=== PATIENT | female | born 1985 | race Caucasian/White ===

== ENCOUNTER 2020-06-23 12:29 | Inpatient (IN) | payer OTHER, SELFPAY ==
--- NOTE | ~2020-06-23 | MR_ITS ---
EXAMINATION: MR renal wo con INDICATION: Right flank pain TECHNIQUE: Coronal SSFSE ARC, FAT and WATER:coronal LAVA-FLEX, Coronal 2D FIESTA FatSat, Axial SSFSE BH ARC, Axial 3D DualEcho BH, Axial SSFSE-IR, Axial DWI b=50-700, Axial 2D FIESTA FatSat, pre Axial L GLORIA ARC, Coronal In and Opposed phase LAVA FLEX COMPARISON: CT, 01/08/2017 CONTRAST: None FINDINGS: There is moderate right hydronephrosis. The right ureter is tortuous. There is a changing c aliber of the ureter as it passes adjacent to the uterus. No definite urinary tract calculus is ident ified. The left kidney is unremarkable. A gravid uterus is noted. Although the examination is not opt imized for evaluation, there is grossly no anomaly identified. There is a large volume of colonic stool. The liver, spleen, pancreas, and adrenal glands are normal. The gallbladder is surgic ally absent. No pathologically enlarged abdominal lymph nodes are identified. There are no dilated lo ops of bowel. Bilateral breast implants are noted. IMPRESSION: 1. Moderate right hydronephrosis and tortuosity of the proximal right ureter with caliber change as t he ureter passes behind the gravid uterus and no definite evidence of urolithiasis. Reviewed, dictated and finalized at location A. [employer]KEE[employer]PER[employer] IMPRESSION: 1. Moderate right hydronephrosis and tortuosity of the proximal right ureter wi th caliber change as the ureter passes behind the gravid uterus and no definite evidence of urolithiasis.
--- NOTE | ~2020-06-23 | US_ITS ---
EXAMINATION: US renal BI DATE: 06/23/2020 17:45 INDICATION: Right flank pain. Nephrolithiasis. TECHNIQUE: Multiple ultrasound grayscale images of the kidneys were obtained. COMPARISON: CT dated 01/08/2017 FINDINGS: The right kidney measures 11.0 x 6.0 x 7.2 cm. The left kidney measures 10.8 x 4.6 x 4.6 cm. The kidn eys demonstrate normal echogenicity. Mild right hydronephrosis. There is no left-sided hydronephrosis . Normal arterial resistive indices at the bilateral kidneys measuring 0.61-0.68 on the right and 0.6 9-0.76 on the left. No stones identified. The bladder is normal. IMPRESSION: 1. Mild right hydronephrosis. Reviewed, dictated and finalized at location A. LIANCE SPEC
[2020-06-23 13:00] VITALS: BMI 21.5
[2020-06-23 13:26] LABS: Add Urine Microscopic? YES; Appearance Urine Cloudy (Clear); Bacteria Urine 1+ /hpf; Bilirubin Urine Negative (Negative); Blood Urine Negative (Negative); Color Urine Yellow (Yellow); Glucose Urine UA 1+ mg/dL (Negative); Ketones Urine Negative (Negative); Leukocyte Esterase Ur 1+ LEU/UL (NEGATIVE); Mucus Urine Rare /lpf; Nitrate Urine Negative (Negative); Protein Urine Negative (Negative); RBC Urine 0-2 /hpf (0-2); Specific Grav Ur 1.014 (1.001-1.035); Squamous Epithelial Cell Urine Few /hpf (Few); Urobilinogen Urine Negative mg/dL (<2.0); WBC Urine 0-3 /hpf (0-3)
[2020-06-23] MEDS: LACTATED RINGERS 1,000 ML 125 ML IV CONT ×2 (13:59→23:08)
[2020-06-23] MEDS: ACETAMINOPHEN 500 MG TABLET 1000 MG PO (14:00)
[2020-06-23 14:09] LABS: Hematocrit 32.6 % (37.0-47.0); Hemoglobin 11.2 g/dL (12.0-15.0); Mean Corpuscular HGB Conc 34.4 g/dl (32-36); Mean Corpuscular Hemoglobin 32.5 pg (26-34); Mean Corpuscular Volume 94.5 fl (80-100); Platelet Count Result 201 k/mm3 (150-375); Red Blood Count 3.45 M/mm3 (4.2-5.4); Red Cell Distribution Width 12.3 % (11.5-14.5); White Blood Count 8.5 K/mm3 (4.5-10.0)
[2020-06-23] MEDS: MORPHINE SULFATE (*CRX) 2 MG/ML INJ IV PUSH ×2 (16:09→20:17)
[2020-06-23] MEDS: ONDANSETRON INJ 4 MG/2 ML VIAL IV PUSH (16:09)
[2020-06-23 20:22] VITALS: BP 95/53; PULSE 73
[2020-06-24] VITALS (8 sets, daily range): BP systolic 88–93; BP diastolic 48–52; PULSE 69–79; RESP 16; TEMP 36.6–36.9
[2020-06-24] MEDS: MORPHINE SULFATE (*CRX) 2 MG/ML INJ IV PUSH ×5 (01:06→20:23)
[2020-06-24] MEDS: HYDROcodone/acetaminophen (*CRX) 5-325 MG TABLET 1 TAB PO ×2 (06:35→17:34)
[2020-06-24] MEDS: LACTATED RINGERS 1,000 ML 125 ML IV CONT ×2 (07:18→15:47)
--- NOTE | 2020-06-24 07:20 | PC.NURSE ---
Patient appears to be more comfortable following pain medication. Patient is resting comfortably dozing.
[2020-06-24] MEDS: ONDANSETRON INJ 4 MG/2 ML VIAL IV PUSH (07:44)
--- NOTE | 2020-06-24 07:46 | PC.NURSE ---
Patient reports increased pain after waking up. Patient states she is feeling nauseous and pain is 7/10 when awake. Medications given as ordered. Patient instructed to call for RN if pain doesn't improve or if she has emesis.
--- NOTE | 2020-06-24 08:19 | PC.NURSE ---
Dr. Anderson at bedside for patient assessment. Plan of care discussed with patient. Patient denies questions and agrees to plan of care.
--- NOTE | 2020-06-24 08:34 | PM.IMHP ---
H&P: HPI History of Present Illness Date/Time: 06/24/20 08:34 Chief Complaint: R flank pain Narrative: Radha Barnett is a 34 year old female at 23w5d who presented with R sided flank pain. Pt has had a positive urine culture and had been on Keflex. Her dysuria continued and her antibiotics were switched to macrobid. pt then presented to the hospital with refractory flank pain despite two different antibiotics. She reports mild dysuria. She denies any hematuria. Pt states she had this happen to her in a previous and was diagnosed with a stone. She required stent placement in the last episode. She denies any fevers, chills, vomiting. She reports intense nausea with her pain. She endorses good movement and denies any obstetric complaints. Review of Systems Cardiovascular: Cardiovascular: Denies chest pain, Denies leg edema, Denies palpitations, Denies dyspnea and Denies dyspnea on exertion Respiratory: Respiratory: Denies cough, Denies dyspnea and Denies dyspnea on exertion Gastrointestinal: Gastrointestinal: Denies abdominal pain, Denies constipation, Denies diarrhea, Denies nausea and Denies vomiting Genitourinary: Genitourinary: Denies hematuria, Denies urinary frequency, Denies dysuria, Denies pelvic pain, Denies urinary incontinence and Denies vaginal discharge Neurologic: Reports system reviewed and no additional complaints, except as documented Psychiatric: Psychiatric: Reports no additional psychiatric complaints Endocrine: Endocrine: Denies palpitations Meds Home Medications and Allergies Allergies Allergy/AdvReac Type Severity Reaction Status Date / Time No Known Allergies Allergy Unverified 07/19/17 11:41 Vital Signs Vital Signs - 24 hr 06/23/20 20:22 06/24/20 04:00 06/24/20 06:37 Temperature 36.9 C Pulse Rate 73 79 71 Respiratory Rate Blood Pressure 95/53 L 90/51 L 92/52 L 06/24/20 06:58 06/24/20 06:59 Temperature 36.9 C Pulse Rate Respiratory Rate 16 Blood Pressure Exam Const: General: no acute distress Eyes: EOM: EOMs intact bilaterally Neck: Neck: supple Thyroid: thyroid normal Chest: Breast/axilla inspection: normal inspection of the breasts Breast/axilla palpation: normal palpation of the breasts, normal palpation of the axillae and no axillary lymphadenopathy Resp: Effort & Inspection: normal respiratory effort Auscultation: clear to auscultation bilaterally Cardio: Rate: regular rate Rhythm: regular rhythm GI: Inspection: non-distended GI Palp: Yes Soft to palpation, No Tenderness to palpation present (GI) and No Guarding due to palpation present (GI) Auscultation: normal bowel sounds : General: No bladder normal to palpation External Female Exam: normal external appearance Speculum Exam - Vagina: normal vaginal discharge and No vaginal bleeding Speculum Exam - Cervix: nontender Bimanual exam- vagina & uterus: No bladder normal to palpation and No Cervical tenderness present OB/external & speculum: No vaginal bleeding Back/Spine/Pelvis: Back: CVA tenderness (Right sided) Skin: General skin exam: normal color and no rashes or lesions noted Neuro: Cognition (Neuro): normal cognition Speech: normal speech Extrem: General: normal to inspection and no edema Psych: Mental Status: mental status grossly normal Affect: normal affect H&P: Results Labs Labs: Short CBC 06/23/20 Range/Units 13:58 WBC 8.5 (4.5-10.0) K/mm3 Hgb 11.2 L (12.0-15.0) g/dL Hct 32.6 L (37.0-47.0) % Plt Count 201 (150-375) k/mm3 Urine 06/23/20 Range/Units 13:05 Urine Color Yellow (Yellow) Urine Appearance Cloudy H (Clear) Urine pH 7.0 (5.0-9.0) Ur Specific [place] 1.014 (1.001-1.035) Urine Protein Negative (Negative) mg/dL Urine Glucose (UA) 1+ H (Negative) mg/dL Assessment and Plan Assessment and plan (1) Flank pain: Code(s): R10.9 - Unspecified abdominal pain Status: Acute
[2020-06-24] MEDS: TAMSULOSIN HCL 0.4 MG CAPSULE PO (08:54)
--- NOTE | 2020-06-24 16:55 | PC.NURSE ---
Patient states her pain is improved following her pain medication. Patient up to the shower.
[2020-06-25] VITALS (9 sets, daily range): BP systolic 77–103; BP diastolic 42–53; PULSE 74–90; RESP 17–18; TEMP 36.7–36.9
[2020-06-25] MEDS: MORPHINE SULFATE (*CRX) 2 MG/ML INJ IV PUSH ×5 (00:25→21:03)
[2020-06-25] MEDS: LACTATED RINGERS 1,000 ML 125 ML IV CONT ×2 (00:25→08:37)
--- NOTE | 2020-06-25 07:41 | PM.OBPNVD ---
OB - PN: Subj Subjective Date/time seen: 06/25/20 07:41 Interval history: still with significant discomfort. OB - PN: Obj Data Labs CBC & Chem 7: 06/23/20 13:58 OB - PN A/P Time Spent With Patient Time: Total time spent is greater than 50% in coordination of care (as documented) at patient's floor/unit and/or counseling patient: imp: pain/renal colic Plan: consult urology/consider mri Review of Systems Review of Systems: All systems reviewed & are unremarkable except as noted in HPI and below Exam Const: General: no acute distress Eyes: General: appearance normal, both eyes and all related structures Neck: Neck: supple and no JVD Thyroid: thyroid normal Resp: Effort & Inspection: normal respiratory effort Auscultation: clear to auscultation bilaterally Cardio: Rate: regular rate Rhythm: regular rhythm GI: Inspection: non-distended GI Palp: Yes Soft to palpation, No Tenderness to palpation present (GI) and No Guarding due to palpation present (GI) Auscultation: normal bowel sounds : General: Yes bladder normal to palpation External Female Exam: normal external appearance Speculum Exam - Vagina: normal vaginal discharge and No vaginal bleeding Speculum Exam - Cervix: nontender Bimanual exam- vagina & uterus: bladder normal to palpation and No Cervical tenderness present OB/external & speculum: No vaginal bleeding Skin: General skin exam: no rashes or lesions noted Extrem: General: normal to inspection and no edema Psych: Mental Status: mental status grossly normal Affect: normal affect
--- NOTE | 2020-06-25 08:01 | PC.NURSE ---
Notified Paula at Dr. Cortes office of consult.
[2020-06-25] MEDS: TAMSULOSIN HCL 0.4 MG CAPSULE PO (08:37)
[2020-06-25] MEDS: HYDROcodone/acetaminophen (*CRX) 5-325 MG TABLET 1 TAB PO (08:37)
[2020-06-25] MEDS: ONDANSETRON INJ 4 MG/2 ML VIAL IV PUSH ×2 (10:35→12:45)
--- NOTE | 2020-06-25 13:22 | P.CONUR_ITS ---
Assessment and Plan Assessment and plan (1) Flank pain: Code(s): R10.9 - Unspecified abdominal pain Status: Acute Assessment and Plan: Patient agrees to continue with pain management at this time. LUC shows only mild hydronephrosis, urine culture was negative and UA shows no blood. Not convincing of a stone but hydronephrosis secondary to . Would not recommend surgical intervention at this time. Urology Consult Note HPI Date Seen: 06/25/20 Requesting Physician: Saul Huston MD Primary Care Provider: Neal Tristan, [facility] Consult Narrative Narrative: Radha Barnett is a 34 year old female who initially was diagnosed with a UTI last Thursday by Dr. Griselda Lala and had c/o dysuria, frequency and pelvic pressure. Initially her culture was positive and she was treated with Keflex, but her symptoms persisted and she then was switched to Macrobid. Her repeat culture was sent on 06/23/2020 which was negative and a LUC that showed only mild right hydronephrosis. She complains of continued pain in the right flank that radiates to her groin and nausea as well as pelvic pressure. She states that she had a stone with her last >9 years ago and had a stent placed. She has not had any c/o stones since then. She is not in favor of any anesthesia or procedures unless her pain would become uncontrolled. She is controlled by pain meds at this time. Her WBC is 8.5. UA doesn't show any RBC's. Review of Systems Cardiovascular: Cardiovascular: Denies chest pain Respiratory: Respiratory: Reports no additional respiratory complaints Gastrointestinal: Gastrointestinal: Denies abdominal pain, Reports nausea and Denies vomiting Genitourinary: Genitourinary: Denies hematuria, Denies dysuria, Reports pelvic pain, Reports flank pain and Denies urinary urgency Meds Home Medications and Allergies Allergies Allergy/AdvReac Type Severity Reaction Status Date / Time No Known Allergies Allergy Unverified 07/19/17 11:41 Vital Signs Vital Signs - 24 hr 06/24/20 19:00 06/24/20 20:21 06/24/20 20:23 Temperature 98.4 F Pulse Rate 73 78 Respiratory Rate Blood Pressure 88/52 L 93/48 L 06/25/20 08:41 06/25/20 08:42 Temperature 98.1 F Pulse Rate 77 Respiratory Rate 17 Blood Pressure 96/52 L Exam Resp: Effort & Inspection: normal respiratory effort Cardio: Rate: regular rate GI: GI Palp: Yes Soft to palpation and Yes Tenderness to palpation present (GI) (RLQ) : General: Yes CVA tenderness on the right Extrem: General: no edema Results Labs CBC & Chem 7: 06/23/20 13:58
[2020-06-25] MEDS: HYDROcodone/acetaminophen (*CRX) 10-325 MG TABLET 1 TAB PO ×3 (14:07→23:02)
--- NOTE | 2020-06-25 14:45 | PC.NURSE ---
Updated Dr. Justice with MRI report. Will contact Dr. Lopez to discuss plan of care.
--- NOTE | 2020-06-25 14:58 | PC.NURSE ---
Plan of care discussed with Dr. Lopez. No changes to plan of care following MRI report. Will continue to monitor patient and control pain.
[2020-06-26] MEDS: MORPHINE SULFATE (*CRX) 2 MG/ML INJ IV PUSH ×2 (01:52→06:41)
[2020-06-26] MEDS: HYDROcodone/acetaminophen (*CRX) 10-325 MG TABLET 1 TAB PO ×2 (04:37→12:05)
[2020-06-26 04:43] VITALS: TEMP 37.2
[2020-06-26 04:44] VITALS: BP 96/53; PULSE 75
--- NOTE | 2020-06-26 08:30 | PM.OBPNVD ---
OB - PN: Subj Subjective Date/time seen: 06/26/20 08:30 Interval history: pain better/mri noted. await further reccs OB - PN: Obj Data Labs CBC & Chem 7: 06/23/20 13:58 Imaging Radiologist's impression: Impressions Kidney MRI 06/25/20 14:15 IMPRESSION: 1. Moderate right hydronephrosis and tortuosity of the proximal right ureter with caliber change as the ureter passes behind the gravid uterus and no definite evidence of urolithiasis. OB - PN A/P Plan day: 2 Comments: pain related to ureteral kinking plan :try to get off iv pain meds Time Spent With Patient Time: Total time spent is greater than 50% in coordination of care (as documented) at patient's floor/unit and/or counseling patient: Review of Systems Review of Systems: All systems reviewed & are unremarkable except as noted in HPI and below Exam Const: General: no acute distress Eyes: General: appearance normal, both eyes and all related structures Neck: Neck: supple and no JVD Thyroid: thyroid normal Resp: Effort & Inspection: normal respiratory effort Auscultation: clear to auscultation bilaterally Cardio: Rate: regular rate Rhythm: regular rhythm GI: Inspection: non-distended GI Palp: Yes Soft to palpation, No Tenderness to palpation present (GI) and No Guarding due to palpation present (GI) Auscultation: normal bowel sounds : General: Yes bladder normal to palpation External Female Exam: normal external appearance Speculum Exam - Vagina: normal vaginal discharge and No vaginal bleeding Speculum Exam - Cervix: nontender Bimanual exam- vagina & uterus: bladder normal to palpation and No Cervical tenderness present OB/external & speculum: No vaginal bleeding Skin: General skin exam: no rashes or lesions noted Extrem: General: normal to inspection and no edema Psych: Mental Status: mental status grossly normal Affect: normal affect
[2020-06-26 08:38] VITALS: BP 93/53; PULSE 75
[2020-06-26 08:45] VITALS: TEMP 37.2
[2020-06-26] MEDS: ONDANSETRON INJ 4 MG/2 ML VIAL IV PUSH (08:46)
[2020-06-26] MEDS: TAMSULOSIN HCL 0.4 MG CAPSULE PO (08:50)
[2020-06-26] MEDS: DOCUSATE SODIUM 100 MG CAPSULE PO (08:52)
--- NOTE | 2020-06-26 13:21 | P.DS_ITS ---
DS: Admitting Diagnosis Admitting Diagnosis Admitting Diagnosis: 24 weeks renal colic DS: Summary Hospital Course Hospital Course: see dictation Time Spent with Patient Time attestation: Total time spent providing and/or coordinating discharge services: the patient was admitted at 24 weeks gestation with renal colic. She underwent ultrasound and MRI which showed no stone but kinking of the right ureter. Consultation was made with Urology but she refused a stent. She was placed on [place] for pain and Zofran and Flomax which will continue for 7 more days. Her white count was normal and antibiotics were stopped on admission. testing was all reassuring Exam Const: General: no acute distress Eyes: General: appearance normal, both eyes and all related structures Neck: Neck: supple and no JVD Thyroid: thyroid normal Resp: Effort & Inspection: normal respiratory effort Auscultation: clear to auscultation bilaterally Cardio: Rate: regular rate Rhythm: regular rhythm GI: Inspection: non-distended GI Palp: Yes Soft to palpation, No Tenderness to palpation present (GI) and No Guarding due to palpation present (GI) Auscultation: normal bowel sounds : General: Yes bladder normal to palpation External Female Exam: normal external appearance Speculum Exam - Vagina: normal vaginal discharge and No vaginal bleeding Speculum Exam - Cervix: nontender Bimanual exam- vagina & uterus: bladder normal to palpation and No Cervical tenderness present OB/external & speculum: No vaginal bleeding Skin: General skin exam: no rashes or lesions noted Extrem: General: normal to inspection and no edema Psych: Mental Status: mental status grossly normal Affect: normal affect Discharge Plan Discharge Attending physician on discharge: Saul Huston Consulting providers: Coy Lopez Discharging Clinician: Saul Huston Patient Disposition: Home, Self-Care Activity: unlimited Diet: heart healthy Patient Instructions: Antibiotic Form Stand Alone Forms: General Discharge Information Follow-up/Referrals: Saul Huston MD [Physician] - Discharge Medications: New hydrocodone-acetaminophen 5-300 mg tablet 1 tablet PO Q6H PRN (Reason: pain) Qty: 30 RF: 0 tamsulosin [Flomax] 0.4 mg capsule 0.4 mg PO DAILY Qty: 7 RF: 0 ondansetron HCl [Zofran] 4 mg tablet 4 mg PO Q6H PRN (Reason: nausea and vomiting) Qty: 30 RF: 0 Date of admission: 06/25/20 12:20 Primary Care Provider: Neal Tristan Admitting Provider: Saul Huston Attending physician on admission: Saul Huston Condition: Stable
[2020-06-26 15:11] VITALS: BP 91/49; PULSE 72
--- NOTE | 2020-06-26 15:34 | PC.NURSE ---
1215--Dr. Griselda Lala at patient bedside. Plan of care discussed.
--- NOTE | 2020-06-26 15:34 | PC.NURSE ---
1300--Dr. Cervantes called for DC orders, Dr Griselda Lala spoke with him via phone for medication orders.
--- NOTE | 2020-06-26 15:36 | PC.NURSE ---
1415--Pt reports pain at tolerable level. No other complaints at this time.
--- NOTE | 2020-06-26 15:43 | PC.NURSE ---
0845--Pt reports pain 6/10 and well-relieved by pain medication. No new complaints of pain or discomfort. FOB at side. Pt eating small amounts of food with little nausea. Reports no recent vomiting.
== END 2020-06-26 15:45 | disposition home or self-care (01) | DRG 566 ==
PROVIDERS: Admitting Provider Student in an Organized Health Care Education/Training Program; Visit Provider Obstetrics & Gynecology
DX: O26.892 Other specified pregnancy related conditions, second trimester (principal); R10.9 Unspecified abdominal pain; O99.891 Other specified diseases and conditions complicating pregnancy; N13.30 Unspecified hydronephrosis; Z3A.24 24 weeks gestation of pregnancy; Z87.442 Personal history of urinary calculi
CPT/HCPCS: 36415; 74181; 76775; 81001; 85027; 87086; A9270; J0696; J2270; J2405; J7120

== ENCOUNTER 2020-07-02 10:38 | Outpatient (CLI) | payer OTHER, SELFPAY ==
--- NOTE | ~2020-07-02 | US_ITS ---
EXAMINATION: US OB limited DATE: 07/02/2020 11:45 INDICATION: Incomplete anatomic survey. TECHNIQUE: Real-time ultrasound of the pelvis was performed. COMPARISON: Abdomen MRI 06/25/2020 FINDINGS: There is a single fetus in vertex presentation. The placenta is posterior and fundal. heart ra te is 145 beats per minute (bpm). The visualized portions of the spine are normal. The amniotic fluid volume is subjectively normal. IMPRESSION: 1. Single living fetus in vertex presentation. 2. Normal visualized portions of the spine. Reviewed, dictated and finalized at location A. MATERNITY
== END 2020-07-02 10:39 | disposition home or self-care (01) ==
LOC: ANHIMG 10:39
PROVIDERS: Visit Provider Obstetrics & Gynecology
DX: Z34.90 Encounter for supervision of normal pregnancy, unspecified, unspecified trimester (principal); Z3A.00 Weeks of gestation of pregnancy not specified
CPT/HCPCS: 76815

== ENCOUNTER 2020-09-10 17:53 | Observation (INO) | payer OTHER, SELFPAY ==
[2020-09-10] VITALS (7 sets, daily range): BP systolic 89–110; BP diastolic 50–77; PULSE 76–104; TEMP 36.7; BMI 23.5
--- NOTE | ~2020-09-10 | US_ITS ---
EXAMINATION: US renal BI DATE: 09/11/2020 07:26 INDICATION: Flank pain TECHNIQUE: Multiple grayscale and Doppler ultrasound images of the kidneys were obtained. COMPARISON: MRI, 06/25/2020 FINDINGS: The right kidney measures 9.8 x 6.0 x 5.2 cm. The left kidney measures 10.5 x 5.3 x 5.3 cm. The kidneys demonstrate normal parenchymal echogenicity. There is persistent moderate right hydronep hrosis. Resistive indices in the kidneys are normal. The bladder is decompressed. IMPRESSION: 1. Persistent moderate right hydronephrosis. Reviewed, dictated and finalized at location A.
[2020-09-10 18:50] LABS: Add Urine Microscopic? YES; Appearance Urine Cloudy (Clear); Bacteria Urine Trace /hpf; Bilirubin Urine Negative (Negative); Blood Urine Negative (Negative); Color Urine Yellow (Yellow); Glucose Urine UA Negative (Negative); Ketones Urine Negative (Negative); Leukocyte Esterase Ur Trace LEU/UL (Negative); Mucus Urine Rare /lpf; Nitrate Urine Negative (Negative); Protein Urine Negative (Negative); RBC Urine 0-2 /hpf (0-2); Specific Grav Ur 1.014 (1.001-1.035); Squamous Epithelial Cell Urine Few /hpf (Few); WBC Urine 0-3 /hpf
--- NOTE | 2020-09-10 18:59 | PC.NURSE ---
all orders entered on 09/10/[address] streeter, dr maldonado was entered in error
[2020-09-10 19:53] LABS: Basophils Percent Auto 0.5 % (0.2-1.2); Eosinophils Absolute Auto 0.1 K/mm3 (0-0.3); Eosinophils Percent Auto 1.1 % (0-4.4); Hematocrit 31.6 % (37.0-47.0); Hemoglobin 10.5 g/dL (12.0-15.0); Immature Granulocyte Absolute 0.04 K/mm3 (0.00-0.031); Immature Granulocyte Percent A 0.5 % (0-0.5); Lymphocytes Percent Auto 15.9 % (18.3-44.2); Mean Corpuscular HGB Conc 33.2 g/dl (32-36); Mean Corpuscular Hemoglobin 31.3 pg (26-34); Mean Corpuscular Volume 94.3 fl (80-100); Mean Platelet Volume 10.1 fl (7.4-10.4); Monocytes Absolute Auto 0.7 K/mm3 (0.1-0.6); Monocytes Percent Auto 8.1 % (2.6-8.5); Neutrophils Absolute Auto 6.5 K/mm3 (1.3-6.7); Neutrophils Percent Auto 73.9 % (45.5-73.1); Platelet Count Result 197 k/mm3 (150-375); Red Blood Count 3.35 M/mm3 (4.2-5.4); Red Cell Distribution Width 12.8 % (11.5-14.5); White Blood Count 8.8 K/mm3 (4.5-10.0)
[2020-09-10] MEDS: ONDANSETRON INJ 4 MG/2 ML VIAL IV PUSH (19:55)
[2020-09-10] MEDS: DEXTROSE 5%/0.45% SOD CHL 1,000 ML 100 ML IV CONT (19:55)
[2020-09-10 20:03] LABS: Potassium 3.4 mmol/L (3.4-5.0)
[2020-09-10 20:05] LABS: Alanine Aminotransferase 15 U/L (4-35); Albumin Level 3.2 g/dL (3.5-5.1); Alkaline Phosphatase 108 U/L (38-126); Anion Gap 3 mmol/L (8-16); Aspartate Amino Transferase 25 U/L (14-36); Bilirubin,Total 0.9 mg/dL (0.2-1.3); Blood Urea Nitrogen 4 mg/dL (7-17); Calcium 8.5 mg/dL (8.4-10.2); Carbon Dioxide 24 mmol/L (22-30); Chloride 108 mmol/L (98-107); Estimated Glomerular Filt Rate > 60; Glucose 66 mg/dL (65-105); Sodium 135 mmol/L (137-145)
[2020-09-10] MEDS: MORPHINE SULFATE (*CRX) 2 MG/ML INJ IV PUSH (20:58)
--- NOTE | 2020-09-11 00:18 | OBADM ---
This patient, Radha Barnett, admitted to the OB room OB Post 117 for observation. Patient/family oriented to hospital policies and general routines including ID bracelet, bed and alarms, visiting hours, pain management, procedures, bathroom and other care routines, personal items, smoking policy, room service/diet, and visiting hours. Patient/Family are encouraged to report perceived risks to care and to ask questions if they do not understand what they are told or what they should do.
--- NOTE | 2020-09-11 00:40 | PC.NURSE ---
pt has not had any vomiting since admission. pt nausea is intermittent and is lessened at this time.
[2020-09-11] MEDS: CYCLOBENZAPRINE HCL 10 MG TABLET PO (02:37)
[2020-09-11 02:40] VITALS: BP 97/64; PULSE 88
--- NOTE | 2020-09-11 07:58 | PM.IMHP ---
H&P: HPI History of Present Illness Date/Time: 09/11/20 07:58 34-year-old 5 para 3 whose EDC is 10/17 21x8 week ultrasound is admitted with nausea vomiting and pain. She has known history of a kinked ureter has refused placement of stents before in the past. This is been an intermittent problem for her the pain is rated as severe. She also has a history of using Adderall for attention deficit disorder and Xanax as needed and she has been decreasing that as much as possible. Chief Complaint: pain/nausea/vomiting Review of Systems Review of Systems: All systems reviewed & are unremarkable except as noted in HPI and below Meds Home Medications and Allergies Home Medications Medication Instructions Recorded Confirmed Type hydrocodone-acetaminophen 1 tablet PO Q6H PRN #30 tablet 06/26/20 Rx ondansetron HCl [Zofran] 4 mg PO Q6H PRN #30 tablet 06/26/20 Rx tamsulosin [Flomax] 0.4 mg PO DAILY #7 cap 06/26/20 Rx Allergies Allergy/AdvReac Type Severity Reaction Status Date / Time No Known Allergies Allergy Unverified 07/19/17 11:41 Vital Signs Vital Signs - 24 hr 09/10/20 18:03 09/10/20 18:15 09/10/20 18:30 Temperature Pulse Rate 104 H 86 82 Blood Pressure 110/77 107/68 106/64 09/10/20 20:10 09/10/20 21:01 09/10/20 21:15 Temperature 98.1 F Pulse Rate 83 81 Blood Pressure 98/58 L 89/50 L 09/10/20 21:30 09/11/20 02:40 Temperature Pulse Rate 76 88 Blood Pressure 94/69 L 97/64 L Exam Const: General: no acute distress Eyes: General: appearance normal, both eyes and all related structures Neck: Neck: supple and no JVD Thyroid: thyroid normal Resp: Effort & Inspection: normal respiratory effort Auscultation: clear to auscultation bilaterally Cardio: Rate: regular rate Rhythm: regular rhythm GI: Inspection: non-distended GI Palp: Yes Soft to palpation, No Tenderness to palpation present (GI) and No Guarding due to palpation present (GI) Auscultation: normal bowel sounds : External Female Exam: normal external appearance Speculum Exam - Vagina: normal appearance of the vagina Other: heart tones were reassuring. Skin: General skin exam: no rashes or lesions noted Extrem: General: normal to inspection and no edema Psych: Mental Status: mental status grossly normal Affect: normal affect H&P: Results Labs Labs: Short CBC 09/10/20 Range/Units 19:36 WBC 8.8 (4.5-10.0) K/mm3 Hgb 10.5 L (12.0-15.0) g/dL Hct 31.6 L (37.0-47.0) % Plt Count 197 (150-375) k/mm3 BMP 09/10/20 19:36 Sodium 135 L Potassium 3.4 Chloride 108 H Carbon Dioxide 24 BUN 4 L Creatinine 0.50 L Glucose 66 Calcium 8.5 Liver Function 09/10/20 Range/Units 19:36 Total Bilirubin 0.9 (0.2-1.3) mg/dL AST 25 (14-36) U/L ALT 15 (4-35) U/L Alkaline Phosphatase 108 (38-126) U/L Albumin 3.2 L (3.5-5.1) g/dL Urine 09/10/20 Range/Units 18:32 Urine Color Yellow (Yellow) Urine Appearance Cloudy H (Clear) Urine pH 7.0 (5.0-9.0) Ur Specific [place] 1.014 (1.001-1.035) Urine Protein Negative (Negative) mg/dL Urine Glucose (UA) Negative (Negative) mg/dL Assessment and Plan Additional Plan Impression: His nausea vomiting with resultant dehydration. Also with severe pain secondary to ureter kinking Plan: IV fluids. Treat pain. Ultrasound is pending. If she does not improve plan consider Urology consult with possible placement of stents. She has been again cyst in the past and I suspect whose she is reluctant to do that this time again.
--- NOTE | 2020-09-11 08:23 | PC.NURSE ---
0810--Dr. Griselda Lala at bedside to discuss plan of care with pt and FOB.
--- NOTE | 2020-09-11 08:24 | PC.NURSE ---
0820--jello and applesauce given to pt after Zofran administered.
--- NOTE | 2020-09-11 08:28 | PC.NURSE ---
0820--Pt declines NST at this time-would prefer to wait for pain medication to be given.
[2020-09-11] MEDS: HYDROcodone/acetaminophen (*CRX) 10-325 MG TABLET 1 TAB PO (09:39)
[2020-09-11 10:09] VITALS: BP 97/57; PULSE 72
[2020-09-11 10:15] VITALS: BP 97/53; PULSE 72
[2020-09-11 10:33] VITALS: BP 97/53; PULSE 71
--- NOTE | 2020-09-11 10:42 | PC.NURSE ---
1045--Pt reports pain has subsided slightly and will try to sleep.
--- NOTE | 2020-09-11 15:07 | PM.DS ---
DS: Admitting Diagnosis Admitting Diagnosis Admitting Diagnosis: nausea/vomiting/renal colic DS: Summary Hospital Course Hospital Course: admitted with renal colic. Time Spent with Patient Time attestation: Total time spent providing and/or coordinating discharge services: Exam Const: General: no acute distress Eyes: General: appearance normal, both eyes and all related structures Neck: Neck: supple and no JVD Thyroid: thyroid normal Resp: Effort & Inspection: normal respiratory effort Auscultation: clear to auscultation bilaterally Cardio: Rate: regular rate Rhythm: regular rhythm GI: Inspection: non-distended GI Palp: Yes Soft to palpation, No Tenderness to palpation present (GI) and No Guarding due to palpation present (GI) Auscultation: normal bowel sounds : General: Yes bladder normal to palpation External Female Exam: normal external appearance Speculum Exam - Vagina: normal vaginal discharge and No vaginal bleeding Speculum Exam - Cervix: nontender Bimanual exam- vagina & uterus: bladder normal to palpation and No Cervical tenderness present OB/external & speculum: No vaginal bleeding Skin: General skin exam: no rashes or lesions noted Extrem: General: normal to inspection and no edema Psych: Mental Status: mental status grossly normal Affect: normal affect DS: Data Data Completed and Pending Labs on day of discharge: Labs from last 24 hours 09/10/20 09/10/20 09/10/20 19:36 19:36 18:32 WBC 8.8 RBC 3.35 L Hgb 10.5 L Hct 31.6 L MCV 94.3 MCH 31.3 MCHC 33.2 RDW 12.8 Plt Count 197 MPV 10.1 Immature Gran % (Auto) 0.5 Neut % (Auto) 73.9 H Lymph % (Auto) 15.9 L [place] % (Auto) 8.1 Eos % (Auto) 1.1 Baso % (Auto) 0.5 Lymph # (Auto) 1.40 [place] # (Auto) 0.7 H Eos # (Auto) 0.1 Baso # (Auto) 0.0 Abs Immat Gran (auto) 0.04 H Absolute Neuts (auto) 6.5 Absolute Nucleated RBC 0.0 Nucleated RBC % 0.0 Sodium 135 L Potassium 3.4 Chloride 108 H Carbon Dioxide 24 Anion Gap 3 L BUN 4 L Creatinine 0.50 L Estim Creat Clear Calc Not Reportable Estimated GFR > 60 Glucose 66 Calcium 8.5 Total Bilirubin 0.9 AST 25 ALT 15 Alkaline Phosphatase 108 Total Protein 6.0 L Albumin 3.2 L Urine Color Yellow Urine Appearance Cloudy H Urine pH 7.0 Ur Specific [place] 1.014 Urine Protein Negative Urine Glucose (UA) Negative Urine Ketones Negative Ur Blood (Man) Negative Urine Nitrate Negative Urine Bilirubin Negative Urine Urobilinogen 2.0 H Leukocyte Esterase Rfl Trace H Urine RBC 0-2 Urine WBC 0-3 Ur Squamous Epith Cells Few Urine Bacteria Trace Urine Mucus Rare Discharge Plan Discharge Attending physician on discharge: Saul Huston Discharging Clinician: Saul Huston Patient Disposition: Home, Self-Care Activity: as tolerated Diet: as tolerated Discharge Instructions: OB ANTEPARTUM DISCHARGE INSTRUCTIONS This information is given to help you properly care for yourself at home after your discharge from the hospital. Follow these instructions until your doctor tells you otherwise. DIET: Small Frequent Feedings Low Fat Additional Diet Instructions: ACTIVITY: As Tolerated Additional Activity Instructions: RETURN TO LABOR AND DELIVERY IF YOU HAVE: Any Change In Baby's Normal Movement Pattern Any Leakage of Fluid Contractions 3-5 Minutes Apart with Increasing Intensity More than 6 Contractions in an Hour Vaginal Bleeding Additional Reasons to Return to Labor and Delivery: Contractions may feel like abdominal pain, tightening, cramping, pressure, back ache, or thigh ache. OTHER INSTRUCTIONS: FOLLOW-UP CARE: Keep Next Scheduled Appointment To see in/on Valuables released to patient or family? N/A Medications from home returned to patient? N/A I Acknowledg
== END 2020-09-11 13:54 | disposition home or self-care (01) ==
PROVIDERS: Admitting Provider Obstetrics & Gynecology; Visit Provider Obstetrics & Gynecology
DX: O21.0 Mild hyperemesis gravidarum (principal); O26.833 Pregnancy related renal disease, third trimester; N23 Unspecified renal colic; Z3A.35 35 weeks gestation of pregnancy
CPT/HCPCS: 36415; 59025; 76775; 80053; 81001; 85025; 96360; 96361; 96365; 96375; A9270; G0378; G0379; J0696; J2270; J2405

== ENCOUNTER 2020-10-04 05:45 | Inpatient (IN) | payer OTHER, SELFPAY ==
[2020-10-04] VITALS (67 sets, daily range): BP systolic 85–124; BP diastolic 46–97; PULSE 49–112; RESP 16; TEMP 36.2–36.9; O2SAT 99–100; BMI 24.1
--- NOTE | 2020-10-04 06:53 | LDADM ---
This patient, Radha Barnett, was admitted to Labor/Delivery/Recovery 106 on 10/04/20 at 05:45. Plans for labor, pain management and were discussed with patient. Patient/family oriented to hospital policies and general routines including ID bracelet, bed and alarms, visiting hours, pain management, procedures, bathroom and other care routines, personal items, smoking policy, room service/diet and guest tray routines, infant security routines, and visiting hours. Patient/Family are encouraged to report perceived risks to care and to ask questions if they do not understand what they are told or what they should do. See OBIX for further documentation.
--- NOTE | 2020-10-04 07:16 | WPDOBADMIT ---
Obstetrics - Admit Note Admission Note: record reviewed. No pertinent additions to the history and/or any subsequent changes in the physical findings that are not consistent with the expected course of the were found. Additions to the history and/or subsequent changes in the physical findings follow. None. Cervix 3/60%/ -1. AROM clear. FHTs reassuring
--- NOTE | 2020-10-04 07:17 | P.HP_ITS ---
H&P: HPI History of Present Illness Date/Time: 10/04/20 07:17 a 34-year-old 5 para 3 whose last menstrual period was 01/10/2020, EDC is 10/17/2020, presents at 38 and half weeks gestation for induction of labor. Her is complicated by being on Adderall and Xanax as needed for anxiety in ADHD. She has had multiple visits for renal colic necessitating intermittent and narcotics as well. Annual angle testing has been okay. Cervix is favorable Chief Complaint: mil Review of Systems Review of Systems: All systems reviewed & are unremarkable except as noted in HPI and below PMFSH Family History Family History Grandparent Breast cancer in female Lung cancer Mother Thyroid disease Sibling Breast cancer in female Social History Social History Smoking status: Never smoker Substance use: former Spiritual care concerns: No Meds Home Medications and Allergies Home Medications Medication Instructions Recorded Confirmed Type ondansetron HCl [Zofran] 4 mg PO Q6H PRN #30 tablet 06/26/20 10/04/20 Rx dextroamphetamine-amphetamine 20 mg PO DAILY 09/17/20 09/17/20 History [Adderall XR] ferrous sulfate 27 mg PO DAILY 09/17/20 09/17/20 History hydrocodone-acetaminophen [[place]] 1 tablet PO Q6H PRN 09/17/20 09/17/20 History prenat.vits,silverio,[id number] 1 tablet PO DAILY 09/17/20 09/17/20 History [ #2] Allergies Allergy/AdvReac Type Severity Reaction Status Date / Time No Known Allergies Allergy Verified 09/17/20 15:39 Vital Signs Vital Signs - 24 hr 10/04/20 06:49 10/04/20 07:15 Pulse Rate 93 62 Blood Pressure 103/69 110/70 Exam Const: General: no acute distress Eyes: General: appearance normal, both eyes and all related structures Neck: Neck: supple and no JVD Thyroid: thyroid normal Resp: Effort & Inspection: normal respiratory effort Auscultation: clear to auscultation bilaterally Cardio: Rate: regular rate Rhythm: regular rhythm GI: Inspection: non-distended GI Palp: Yes Soft to palpation, No Tenderness to palpation present (GI) and No Guarding due to palpation present (GI) Auscultation: normal bowel sounds : External Female Exam: normal external appearance Speculum Exam - Vagina: normal appearance of the vagina Speculum Exam - Cervix: normal appearance of the cervix and Cervical os closed ( cervix 3/60/1. AROM clear. FHTs reassuring) Skin: General skin exam: no rashes or lesions noted Extrem: General: normal to inspection and no edema Psych: Mental Status: mental status grossly normal Affect: normal affect Assessment and Plan Additional Plan impression: 38+ week with severe renal colic and medical issues Plan: Medical induction of labor. Spontaneous vaginal delivery is expected
[2020-10-04] MEDS: LACTATED RINGERS 1,000 ML 125 ML IV CONT ×2 (07:21→08:53)
[2020-10-04] MEDS: OXYTOCIN 30 UNITS/NS 500 ML 30 UNITS/500 ML BAG IV CONT (07:21)
[2020-10-04 07:33] LABS: Basophils Percent Auto 0.5 % (0.2-1.2); Eosinophils Absolute Auto 0.1 K/mm3 (0-0.3); Eosinophils Percent Auto 2.2 % (0-4.4); Hemoglobin 10.2 g/dL (12.0-15.0); Immature Granulocyte Absolute 0.03 K/mm3 (0.00-0.031); Immature Granulocyte Percent A 0.5 % (0-0.5); Lymphocytes Percent Auto 21.6 % (18.3-44.2); Mean Corpuscular HGB Conc 32.9 g/dl (32-36); Mean Corpuscular Hemoglobin 30.3 pg (26-34); Mean Platelet Volume 11.5 fl (7.4-10.4); Monocytes Absolute Auto 0.6 K/mm3 (0.1-0.6); Monocytes Percent Auto 9.9 % (2.6-8.5); Neutrophils Absolute Auto 4.2 K/mm3 (1.3-6.7); Neutrophils Percent Auto 65.3 % (45.5-73.1); Platelet Count Result 189 k/mm3 (150-375); Red Blood Count 3.37 M/mm3 (4.2-5.4); Red Cell Distribution Width 12.2 % (11.5-14.5); White Blood Count 6.5 K/mm3 (4.5-10.0)
[2020-10-04 08:17] LABS: Amphetamine Screen Urine Positive (Negative); Barbiturate Screen Urine Negative (Negative); Benzodiazepines Screen Urine Negative (Negative); Cannabinoid Screen Urine Positive (Negative); Cocaine Screen Urine Negative (Negative); Methadone Screen Urine Negative (Negative); Opiate Screen Urine Negative (Negative); Phencyclidine Screen Urine Negative (Negative)
[2020-10-04 08:25] LABS: HIV 1/2 Ab P24 Ag Result Negative (Negative)
--- NOTE | 2020-10-04 08:57 | WPDANESEPP ---
Anes - Eval Pre Procedure Procedure: Labor epidural Date/Time: 10/04/20 08:57 Surgeon: Valentin Preop Diagnosis: labor epidural Pre Op Diagnosis: IOL Patient Data Age: 34 Gender: F Height: 1.7 m Weight: 70 kg Last Vital Signs Temp 36.8 C 10/04/20 08:15 Pulse 57 L 10/04/20 08:46 BP 119/74 10/04/20 08:46 Allergies Allergy/AdvReac Type Severity Reaction Status Date / Time No Known Allergies Allergy Verified 09/17/20 15:39 Home Medications Medication Instructions Recorded Confirmed Type ondansetron HCl [Zofran] 4 mg PO Q6H PRN #30 tablet 06/26/20 10/04/20 Rx dextroamphetamine-amphetamine 20 mg PO DAILY 09/17/20 09/17/20 History [Adderall XR] ferrous sulfate 27 mg PO DAILY 09/17/20 09/17/20 History hydrocodone-acetaminophen [[place]] 1 tablet PO Q6H PRN 09/17/20 09/17/20 History prenat.vits,silverio,[id number] 1 tablet PO DAILY 09/17/20 09/17/20 History [ #2] Laboratory Tests 10/04/20 10/04/20 10/04/20 06:27 06:27 06:27 WBC 6.5 K/mm3 K/mm3 (4.5-10.0) RBC 3.37 M/mm3 L M/mm3 (4.2-5.4) Hgb 10.2 g/dL L g/dL (12.0-15.0) Hct 31.0 % L % (37.0-47.0) MCV 92.0 fl fl (80-100) MCH 30.3 pg pg (26-34) MCHC 32.9 g/dl g/dl (32-36) RDW 12.2 % % (11.5-14.5) Plt Count 189 k/mm3 k/mm3 (150-375) MPV 11.5 fl H fl (7.4-10.4) Immature Gran % (Auto) 0.5 % % (0-0.5) Neut % (Auto) 65.3 % % (45.5-73.1) Lymph % (Auto) 21.6 % % (18.3-44.2) [place] % (Auto) 9.9 % H % (2.6-8.5) Eos % (Auto) 2.2 % % (0-4.4) Baso % (Auto) 0.5 % % (0.2-1.2) Lymph # (Auto) 1.40 K/mm3 K/mm3 (0.9-3.2) [place] # (Auto) 0.6 K/mm3 K/mm3 (0.1-0.6) Eos # (Auto) 0.1 K/mm3 K/mm3 (0-0.3) Baso # (Auto) 0.0 K/mm3 K/mm3 (0.0-0.1) Abs Immat Gran (auto) 0.03 K/mm3 K/mm3 (0.00-0.031) Absolute Neuts (auto) 4.2 K/mm3 K/mm3 (1.3-6.7) Absolute Nucleated RBC 0.0 K/mm3 K/mm3 (0.0-0.012) Nucleated RBC % 0.0 % % (0.0-0.2) Urine Opiates Screen Urine Methadone Screen Ur Barbiturates Screen Ur Phencyclidine Scrn Ur Amphetamine Screen U Benzodiazepines Scrn Urine Cocaine Screen U Cannabinoids Screen RPR Pending HIV 1&2 Ab/P24 Ag 4thGn Negative (Negative) Blood Type Antibody Screen 10/04/20 10/04/20 06:27 07:08 WBC RBC Hgb Hct MCV MCH MCHC RDW Plt Count MPV Immature Gran % (Auto) Neut % (Auto) Lymph % (Auto) [place] % (Auto) Eos % (Auto) Baso % (Auto) Lymph # (Auto) [place] # (Auto) Eos # (Auto) Baso # (Auto) Abs Immat Gran (auto) Absolute Neuts (auto) Absolute Nucleated RBC Nucleated RBC % Urine Opiates Screen Negative (Negative) Urine Methadone Screen Negative (Negative) Ur Barbiturates Screen Negative (Negative) Ur Phencyclidine Scrn Negative (Negative) Ur Amphetamine Screen Positive A (Negative) U Benzodiazepines Scrn Negative (Negative) Urine Cocaine Screen Negative (Negative) U Cannabinoids Screen Positive A (Negative) RPR HIV 1&2 Ab/P24 Ag 4thGn Blood Type A Positive Antibody Screen Negative Patient hx anesthesia problems: none Family hx anesthesia problems: none PMFSH Past Medical History Medical History (Updated 10/04/20 @ 08:58 by Stephanie Brink CRNA) ADHD GERD (gastroesophageal reflux disease) Family History Family History (Reviewed 10/04/20 @ 07:18 by Saul Huston,
[2020-10-04 10:25] LABS: Rapid Plasma Reagin Non-Reactive (NonReactive)
--- NOTE | 2020-10-04 11:28 | PM.OBPNVD ---
OB - PN: Subj Subjective Date/time seen: 10/04/20 11:28 rn exam 360 fhts ok increase pit/epidural in OB - PN: Obj Data Labs CBC & Chem 7: 10/04/20 06:27 Labs: Laboratory Results - last 24 hr 10/04/20 10/04/20 10/04/20 06:27 06:27 06:27 WBC 6.5 RBC 3.37 L Hgb 10.2 L Hct 31.0 L MCV 92.0 MCH 30.3 MCHC 32.9 RDW 12.2 Plt Count 189 MPV 11.5 H Immature Gran % (Auto) 0.5 Neut % (Auto) 65.3 Lymph % (Auto) 21.6 [place] % (Auto) 9.9 H Eos % (Auto) 2.2 Baso % (Auto) 0.5 Lymph # (Auto) 1.40 [place] # (Auto) 0.6 Eos # (Auto) 0.1 Baso # (Auto) 0.0 Abs Immat Gran (auto) 0.03 Absolute Neuts (auto) 4.2 Absolute Nucleated RBC 0.0 Nucleated RBC % 0.0 Urine Opiates Screen Urine Methadone Screen Ur Barbiturates Screen Ur Phencyclidine Scrn Ur Amphetamine Screen U Benzodiazepines Scrn Urine Cocaine Screen U Cannabinoids Screen RPR Non-reactive HIV 1&2 Ab/P24 Ag 4thGn Negative Blood Type Antibody Screen 10/04/20 10/04/20 06:27 07:08 WBC RBC Hgb Hct MCV MCH MCHC RDW Plt Count MPV Immature Gran % (Auto) Neut % (Auto) Lymph % (Auto) [place] % (Auto) Eos % (Auto) Baso % (Auto) Lymph # (Auto) [place] # (Auto) Eos # (Auto) Baso # (Auto) Abs Immat Gran (auto) Absolute Neuts (auto) Absolute Nucleated RBC Nucleated RBC % Urine Opiates Screen Negative Urine Methadone Screen Negative Ur Barbiturates Screen Negative Ur Phencyclidine Scrn Negative Ur Amphetamine Screen Positive A U Benzodiazepines Scrn Negative Urine Cocaine Screen Negative U Cannabinoids Screen Positive A RPR HIV 1&2 Ab/P24 Ag 4thGn Blood Type A Positive Antibody Screen Negative OB - PN A/P Time Spent With Patient Time: Total time spent is greater than 50% in coordination of care (as documented) at patient's floor/unit and/or counseling patient:
[2020-10-04] MEDS: ONDANSETRON INJ 4 MG/2 ML VIAL IV PUSH (13:46)
--- NOTE | 2020-10-04 15:51 | PM.OBPNVD ---
OB - PN: Subj Subjective Date/time seen: 10/04/20 15:51 cx 9 fhts reassuring OB - PN: Obj Data Labs CBC & Chem 7: 10/04/20 06:27 Labs: Laboratory Results - last 24 hr 10/04/20 10/04/20 10/04/20 06:27 06:27 06:27 WBC 6.5 RBC 3.37 L Hgb 10.2 L Hct 31.0 L MCV 92.0 MCH 30.3 MCHC 32.9 RDW 12.2 Plt Count 189 MPV 11.5 H Immature Gran % (Auto) 0.5 Neut % (Auto) 65.3 Lymph % (Auto) 21.6 [place] % (Auto) 9.9 H Eos % (Auto) 2.2 Baso % (Auto) 0.5 Lymph # (Auto) 1.40 [place] # (Auto) 0.6 Eos # (Auto) 0.1 Baso # (Auto) 0.0 Abs Immat Gran (auto) 0.03 Absolute Neuts (auto) 4.2 Absolute Nucleated RBC 0.0 Nucleated RBC % 0.0 Urine Opiates Screen Urine Methadone Screen Ur Barbiturates Screen Ur Phencyclidine Scrn Ur Amphetamine Screen U Benzodiazepines Scrn Urine Cocaine Screen U Cannabinoids Screen RPR Non-reactive HIV 1&2 Ab/P24 Ag 4thGn Negative Blood Type Antibody Screen 10/04/20 10/04/20 06:27 07:08 WBC RBC Hgb Hct MCV MCH MCHC RDW Plt Count MPV Immature Gran % (Auto) Neut % (Auto) Lymph % (Auto) [place] % (Auto) Eos % (Auto) Baso % (Auto) Lymph # (Auto) [place] # (Auto) Eos # (Auto) Baso # (Auto) Abs Immat Gran (auto) Absolute Neuts (auto) Absolute Nucleated RBC Nucleated RBC % Urine Opiates Screen Negative Urine Methadone Screen Negative Ur Barbiturates Screen Negative Ur Phencyclidine Scrn Negative Ur Amphetamine Screen Positive A U Benzodiazepines Scrn Negative Urine Cocaine Screen Negative U Cannabinoids Screen Positive A RPR HIV 1&2 Ab/P24 Ag 4thGn Blood Type A Positive Antibody Screen Negative OB - PN A/P Time Spent With Patient Time: Total time spent is greater than 50% in coordination of care (as documented) at patient's floor/unit and/or counseling patient:
--- NOTE | 2020-10-04 16:34 | PM.OBPRVD ---
OB - Delivery Note Procedure Delivery date: 10/04/20 Procedure: mil events: Labor Induction and Labor Augmentation Intrapartal events: None Induction method: AROM Delivery augmentation: pitocin Delivery monitor: external FHT Route of delivery: Episiotomy description: None Laceration Description: None Quantitative Blood Loss (ml): 58 Anesthesia type: Epidural Disposition: floor Baby Date of : 10/04/20 Time of : 16:26 Weeks of gestation at delivery: 38 Weight (pounds): 6 Weight (ounces): 14 presentation: vertex position: Right Occiput Anterior Placenta delivery description: Spontaneous cord vessel description: 3 Vessels score one minute: 7 score five minutes: 9
[2020-10-04] MEDS: OXYTOCIN 30 UNITS/NS 500 ML 30 UNITS/500 ML BAG 125 UNITS IV CONT (17:05)
[2020-10-04] MEDS: LORATADINE 10 MG TABLET PO (18:22)
[2020-10-04] MEDS: WITCH HAZEL 40 PADS 1 PAD TOPICAL (18:32)
[2020-10-04] MEDS: IBUPROFEN 600 MG TABLET PO (19:18)
--- NOTE | 2020-10-04 20:05 | OBPPTRN ---
Patient transferred to post room #289 via wheelchair. Support person present. Oriented to unit, room, information board, rooming in, admission packet and security measures. Patient verbalizes understanding. with patient.
[2020-10-05] MEDS: IBUPROFEN 600 MG TABLET PO (02:45)
[2020-10-05 04:40] VITALS: BP 105/59; PULSE 75; RESP 16; TEMP 36.6; O2SAT 100
[2020-10-05] MEDS: ACETAMINOPHEN 325 MG TABLET 650 MG PO (04:41)
[2020-10-05 05:45] LABS: Hematocrit 31.2 % (37.0-47.0); Hemoglobin 10.1 g/dL (12.0-15.0)
--- NOTE | 2020-10-05 06:36 | PM.OBPNVD ---
OB - PN: Subj Subjective Date/time seen: 10/05/20 06:36 Patient comments: no complaints and pain well controlled baby status: doing well and nursing well OB - PN: Obj Data Labs CBC & Chem 7: 10/05/20 04:46 Labs: Laboratory Results - last 24 hr 10/04/20 10/04/20 10/04/20 06:27 06:27 06:27 WBC 6.5 RBC 3.37 L Hgb 10.2 L Hct 31.0 L MCV 92.0 MCH 30.3 MCHC 32.9 RDW 12.2 Plt Count 189 MPV 11.5 H Immature Gran % (Auto) 0.5 Neut % (Auto) 65.3 Lymph % (Auto) 21.6 [place] % (Auto) 9.9 H Eos % (Auto) 2.2 Baso % (Auto) 0.5 Lymph # (Auto) 1.40 [place] # (Auto) 0.6 Eos # (Auto) 0.1 Baso # (Auto) 0.0 Abs Immat Gran (auto) 0.03 Absolute Neuts (auto) 4.2 Absolute Nucleated RBC 0.0 Nucleated RBC % 0.0 Urine Opiates Screen Urine Methadone Screen Ur Barbiturates Screen Ur Phencyclidine Scrn Ur Amphetamine Screen U Benzodiazepines Scrn Urine Cocaine Screen U Cannabinoids Screen RPR Non-reactive HIV 1&2 Ab/P24 Ag 4thGn Negative Blood Type Antibody Screen 10/04/20 10/04/20 10/05/20 06:27 07:08 04:46 WBC RBC Hgb 10.1 L Hct 31.2 L MCV MCH MCHC RDW Plt Count MPV Immature Gran % (Auto) Neut % (Auto) Lymph % (Auto) [place] % (Auto) Eos % (Auto) Baso % (Auto) Lymph # (Auto) [place] # (Auto) Eos # (Auto) Baso # (Auto) Abs Immat Gran (auto) Absolute Neuts (auto) Absolute Nucleated RBC Nucleated RBC % Urine Opiates Screen Negative Urine Methadone Screen Negative Ur Barbiturates Screen Negative Ur Phencyclidine Scrn Negative Ur Amphetamine Screen Positive A U Benzodiazepines Scrn Negative Urine Cocaine Screen Negative U Cannabinoids Screen Positive A RPR HIV 1&2 Ab/P24 Ag 4thGn Blood Type A Positive Antibody Screen Negative OB - PN A/P Plan day: 1 Plan: routine care Time Spent With Patient Time: Total time spent is greater than 50% in coordination of care (as documented) at patient's floor/unit and/or counseling patient: Time with patient: less than 15 minutes Review of Systems Review of Systems: All systems reviewed & are unremarkable except as noted in HPI and below Exam Const: General: no acute distress Eyes: General: appearance normal, both eyes and all related structures Neck: Neck: supple and no JVD Thyroid: thyroid normal Resp: Effort & Inspection: normal respiratory effort Auscultation: clear to auscultation bilaterally Cardio: Rate: regular rate Rhythm: regular rhythm GI: Inspection: non-distended GI Palp: Yes Soft to palpation, No Tenderness to palpation present (GI) and No Guarding due to palpation present (GI) Auscultation: normal bowel sounds : General: Yes bladder normal to palpation External Female Exam: normal external appearance Speculum Exam - Vagina: normal vaginal discharge and No vaginal bleeding Speculum Exam - Cervix: nontender Bimanual exam- vagina & uterus: bladder normal to palpation and No Cervical tenderness present OB/external & speculum: No vaginal bleeding Skin: General skin exam: no rashes or lesions noted Extrem: General: normal to inspection and no edema Psych: Mental Status: mental status grossly normal Affect: normal affect
--- NOTE | 2020-10-05 06:49 | PM.DS ---
DS: Admitting Diagnosis Admitting Diagnosis Admitting Diagnosis: term/htyn DS: Summary Hospital Course Hospital Course: The patient was admitted at term for induction of labor secondary to pelvic pain and renal colic. She underwent spontaneous vaginal delivery which was unremarkable. She was up, voiding without difficulty, voiding without difficulty, ambulating, and ge Time Spent with Patient Time attestation: Total time spent providing and/or coordinating discharge services: Exam Const: General: no acute distress Eyes: General: appearance normal, both eyes and all related structures Neck: Neck: supple and no JVD Thyroid: thyroid normal Resp: Effort & Inspection: normal respiratory effort Auscultation: clear to auscultation bilaterally Cardio: Rate: regular rate Rhythm: regular rhythm GI: Inspection: non-distended GI Palp: Yes Soft to palpation, No Tenderness to palpation present (GI) and No Guarding due to palpation present (GI) Auscultation: normal bowel sounds : General: Yes bladder normal to palpation External Female Exam: normal external appearance Speculum Exam - Vagina: normal vaginal discharge and No vaginal bleeding Speculum Exam - Cervix: nontender Bimanual exam- vagina & uterus: bladder normal to palpation and No Cervical tenderness present OB/external & speculum: No vaginal bleeding Skin: General skin exam: no rashes or lesions noted Extrem: General: normal to inspection and no edema Psych: Mental Status: mental status grossly normal Affect: normal affect DS: Data Data Completed and Pending Labs on day of discharge: Labs from last 24 hours 10/05/20 10/04/20 10/04/20 04:46 07:08 06:27 WBC RBC Hgb 10.1 L Hct 31.2 L MCV MCH MCHC RDW Plt Count MPV Immature Gran % (Auto) Neut % (Auto) Lymph % (Auto) [place] % (Auto) Eos % (Auto) Baso % (Auto) Lymph # (Auto) [place] # (Auto) Eos # (Auto) Baso # (Auto) Abs Immat Gran (auto) Absolute Neuts (auto) Absolute Nucleated RBC Nucleated RBC % Urine Opiates Screen Negative Urine Methadone Screen Negative Ur Barbiturates Screen Negative Ur Phencyclidine Scrn Negative Ur Amphetamine Screen Positive A U Benzodiazepines Scrn Negative Urine Cocaine Screen Negative U Cannabinoids Screen Positive A RPR HIV 1&2 Ab/P24 Ag 4thGn Blood Type A Positive Antibody Screen Negative 10/04/20 10/04/2010/04/21 06:27 06:27 06:27 WBC 6.5 RBC 3.37 L Hgb 10.2 L Hct 31.0 L MCV 92.0 MCH 30.3 MCHC 32.9 RDW 12.2 Plt Count 189 MPV 11.5 H Immature Gran % (Auto) 0.5 Neut % (Auto) 65.3 Lymph % (Auto) 21.6 [place] % (Auto) 9.9 H Eos % (Auto) 2.2 Baso % (Auto) 0.5 Lymph # (Auto) 1.40 [place] # (Auto) 0.6 Eos # (Auto) 0.1 Baso # (Auto) 0.0 Abs Immat Gran (auto) 0.03 Absolute Neuts (auto) 4.2 Absolute Nucleated RBC 0.0 Nucleated RBC % 0.0 Urine Opiates Screen Urine Methadone Screen Ur Barbiturates Screen Ur Phencyclidine Scrn Ur Amphetamine Screen U Benzodiazepines Scrn Urine Cocaine Screen U Cannabinoids Screen RPR Non-reactive HIV 1&2 Ab/P24 Ag 4thGn Negative Blood Type Antibody Screen Discharge Plan Discharge Attending physician on discharge: Saul Huston Discharging Clinician: Saul Huston Patient Disposition: Home, Self-Care Activity: may shower, no straining and pelvic rest Diet: heart healthy Wound Care Instructions: follow printed instructions Patient Instructions: Antibiotic Form Stand Alone Forms: General Discharge Information Follow-up/Referrals: Saul Huston MD [Physician] - Discharge Medications: Continued ondansetron HCl [Zofran] 4 mg tablet 4 mg PO Q6H PRN (Reason: nausea and vomiting) Qty: 30 RF: 0 dextroamphetamine-amphetamine [Adderall XR] 20 mg Capsule,Exten
[2020-10-05 08:40] VITALS: BP 128/78; PULSE 78; RESP 18; TEMP 36.9
--- NOTE | 2020-10-05 09:48 | WPDANLDPN2 ---
Anes-Prog Note L&D Date/Time: 10/05/20 09:48 Comfortable throughout: labor and delivery Neuraxial method: epidural Neuro status: Neuro function grossly intact. Cardiovascular status: normal Respiratory status: normal Airway patency: baseline Mental status: baseline Post-Op hydration status: normal Vital Signs: Last Vital Signs Temp 36.6 C 10/05/20 04:40 Pulse 75 10/05/20 04:40 Resp 16 10/05/20 04:40 BP 105/59 L 10/05/20 04:40 Pulse Ox 100 10/05/20 04:40 Pain score (VAS): 05/20 I/O: Intake & Output 10/04/20 10/05/20 10/05/20 23:59 07:59 15:59 Output Total 166 Balance -166 Post-procedural complaints: none Patient feedback: Patient satisfied with anesthetic care.
[2020-10-05 12:05] VITALS: BP 103/73; PULSE 71; RESP 12; TEMP 36.9; O2SAT 98
--- NOTE | 2020-10-05 14:37 | PCCCNOTE ---
Care Coordination met with pt. and FOB this afternoon to discuss discharge planning. Pt.'s current D/C plan is to return home with FOB and her 3 other children. Pt. confirms that she has local family support and someone is currently watching her other children. Pt. has everything she needs to safely bring baby home. Pt. is current with [facility] and states she will bottle feed baby. Pt. denies any prior DCFS cases. Pt. did test positive at time of admission for Marijuana and Amphetamines. Pt. has a prescription for Adderall that results in the positive Amphetamine screening. Pt. states her primary provider usually prescribes her Adderall, but her OB Provider was managing the prescription during the . Pt. admits to Marijuana use throughout to assist with nausea and appetite. Pt. understands that CC will have to report the Marijuana use to [place] DCFS. Pt. states understanding and has no concerns. Pt. and FOB have been provided resources. Will follow.
--- NOTE | 2020-10-05 16:45 | PC.NURSE ---
Patient received instruction on viewing the discharge video Mother & Baby Care, The First Two Weeks . Patient was given the opportunity and encouraged to ask questions. Patient verbalized understanding of information shared and has been given the mother/baby guide for home reference.
[2020-10-08 09:50] VITALS: BP 125/82; PULSE 66; RESP 20; TEMP 36.8; O2SAT 99
== END 2020-10-05 18:05 | disposition home or self-care (01) | DRG 560 ==
LOC: ANHLDR 05:48 → ANHOB2 20:56
PROVIDERS: Admitting Provider Obstetrics & Gynecology; Visit Provider Obstetrics & Gynecology
DX: O26.833 Pregnancy related renal disease, third trimester (principal); O99.62 Diseases of the digestive system complicating childbirth; Z37.0 Single live birth; Z3A.38 38 weeks gestation of pregnancy; K21.9 Gastro-esophageal reflux disease without esophagitis; O99.344 Other mental disorders complicating childbirth; F90.9 Attention-deficit hyperactivity disorder, unspecified type; N23 Unspecified renal colic
CPT/HCPCS: 36415; 80307; 85014; 85018; 85025; 86592; 86703; 86850; 86900; 86901; A9270; G0432; J2405; J2590; J2795; J7120

== ENCOUNTER 2023-07-01 09:48 | Outpatient (CLI) | payer OTHER, SELFPAY | END 2023-07-01 09:49 | disposition home or self-care (01) | LOC: ANHSURGERY 09:53 | PROVIDERS: PCP Family Medicine; Visit Provider Obstetrics & Gynecology | DX: N80.9 Endometriosis, unspecified (principal); Z01.818 Encounter for other preprocedural examination | CPT/HCPCS: 36415; 86850; 86900; 86901 ==

== ENCOUNTER 2023-07-03 02:49 | Day surgery (SDC) | payer OTHER, SELFPAY ==
[2023-06-29 11:38] VITALS: BMI 19.1
--- NOTE | 2023-06-29 11:43 | PC.NURSE ---
Report to the Outpatient Waiting Room, entrance under the green pavilion located off [facility], at time 6:00 on date 07/03/23. Planned Procedure Time: 7:30. Time changes happen often and if your time is changed the preop area will call you the afternoon before. - You and your visitor will be asked to self-screen and do not enter if you have any COVID symptoms. - A mask is optional within the hospital at this time. Patients may have clear liquids (water, carbonated beverages, clear teas, apple juice) until 3 hours prior to surgery (4:30) with a maximum of 20 ounces. - No food from midnight until time of surgery Take the following medications with a SIP of water the morning of surgery: LEXAPRO DO NOT STOP ANY OF YOUR OTHER PRESCRIPTION MEDICATIONS PRIOR TO SURGERY ?EXCEPT THE FOLLOWING Medications to discontinue per physician: N/A Date to take last dose: N/A Please no make-up, nail gabonese, hairspray, perfume, deodorant, or body powder the day of surgery. No jewelry (including any body piercings) or valuables the day of surgery, leave them at home. Please take a shower or bath the night before, or the morning of, surgery with an antibacterial soap. Wear comfortable, loose fitting clothing. - Jewelry must be removed prior to entering the operating room. Rings and piercings that are not removed may be cut off. - The hospital will not accept responsibility for valuables. - Please leave all valuables, including medications, at home the day of surgery. If you are going home after surgery, a licensed driver/sales workers must drive you home. - NO public transportation without another adult if you receive anesthesia. - We recommend that an adult stay with you for 24 hours following discharge. - We also recommend that you do not drive, make important decision, drink alcoholic beverages, or take any drugs that were not prescribed by your health care provider for at least 24 hours after your discharge time. Follow any additional instructions given to you from your surgeon. If you or anyone in your household have experienced Covid symptoms in the past week, please notify your surgeon or the nurse liaison at the phone number below for possible testing. Telephone instructions given to PT - RAFAELA GARCIAS and asked if any additional questions and then verbalized understanding. Patient advised to call surgeon office or pre surgery nurse liaison [phone] if any additional questions.
--- NOTE | 2023-07-01 07:10 | P.HP_ITS ---
H&P: HPI History of Present Illness Date/Time: 07/01/23 07:10 Chief Complaint: Pelvic pain/desires permanent sterilization Narrative: 37-year-old para 4 admitted for laparoscopic tubal ligation and diagnos tic laparoscopy suspected endometriosis she has signed the [facility] of Public aid form for permanent sterilization. She understands this to be reversible and alternatives reviewed in great detail including larcs ex/injections/patches/pills/etc. She had all questions answered received the [employer] handout entitled sterilization for men and women. She has to proceed PMFSH Past Medical History Medical History ADHD GERD (gastroesophageal reflux disease) Family History Family History Grandparent Breast cancer in female Lung cancer Mother Thyroid disease Sibling Breast cancer in female Social History Social History Smoking status: Never smoker Alcohol intake: current Alcohol use details: RARE Substance use: current Substance use type: marijuana Living arrangements: with family Spiritual care concerns: No Meds Home Medications and Allergies Home Medications Medication Instructions Recorded Confirmed Type escitalopram oxalate 10 mg tablet 10 mg PO DAILY 06/29/23 06/29/23 History lisdexamfetamine 60 mg capsule 60 mg PO DAILY 06/29/23 06/29/23 History (Vyvanse) Allergies Allergy/AdvReac Type Severity Reaction Status Date / Time No Known Allergies Allergy Verified 06/29/23 11:37 Exam Const: General: cooperative, healthy appearing and comfortable Nutritional Appearance: average body habitus Orientation/consciousness: oriented to person, oriented to place and oriented to time Resp: Effort & Inspection: normal respiratory effort Cardio: Rate: regular rate Rhythm: regular rhythm Heart sounds: S1 normal heart sound present and S2 normal heart sound present GI: Inspection: normal to inspection : External Female Exam: normal external appearance Speculum Exam - Vagina: normal appearance of the vagina Speculum Exam - Cervix: normal appearance of the cervix Bimanual exam- vagina & uterus: enlarged Bimanual Exam- Adnexa, other: tender bilaterally Assessment and Plan Assessment and plan (1) Sterilization: Code(s): Z30.2 - Encounter for sterilization Status: Acute (2) Pelvic pain: Code(s): R10.2 - Pelvic and perineal pain Status: Acute Plan Diagnostic laparoscopy bilateral tubal ligation and destruction of endometriosis
[2023-07-03] VITALS (9 sets, daily range): BP systolic 94–117; BP diastolic 55–81; PULSE 50–71; RESP 12–14; TEMP 36.5; O2SAT 98–100
--- NOTE | 2023-07-03 06:29 | WPDHPUPDATE1 ---
History and Physical Update Update Date/Time: 07/03/23 06:29 History and Physical has been reviewed, including an updated exam of the patient. There are NO changes in the patient's condition. Risks, benefits, and alternatives have been discussed and questions answered. Patient agrees to proceed with procedure.
[2023-07-03] MEDS: ACETAMINOPHEN 500 MG TABLET 1000 MG PO (06:30)
[2023-07-03] MEDS: KETOROLAC 15 MG/ML VIAL (*BKC) IV PUSH (06:30)
[2023-07-03] MEDS: LACTATED RINGERS 1,000 ML 30 ML IV CONT ×2 (06:30→07:53)
--- NOTE | 2023-07-03 07:04 | WPDANESEPPF ---
Anes - Initial Pre Proc Eval Procedure: Operation Date: 07/03/23 07:30 Proposed Procedures p Laparoscopic Bilateral Tubal Sterilization with Fallopian Rings, Laparoscopic Cautery of Endometriosis - Saul Lala MD Date/Time: 07/03/23 07:04 Surgeon: Saul Lala MD Pre Op Diagnosis: pelvic pain,endometrosis,dysmenorrhea,ana steril Patient Data Age: 37 Gender: F Height: 1.69 m Weight: 54.5 kg Allergies Allergy/AdvReac Type Severity Reaction Status Date / Time No Known Allergies Allergy Verified 06/29/23 11:37 Home Medications Medication Instructions Recorded Confirmed Type escitalopram oxalate 10 mg tablet 10 mg PO DAILY 06/29/23 06/29/23 History lisdexamfetamine 60 mg capsule 60 mg PO DAILY 06/29/23 06/29/23 History (Vyvanse) hydrocodone 5 mg-acetaminophen 325 1 tablet PO Q4H PRN pain #20 tabs 07/03/23 Rx mg tablet Patient hx anesthesia problems: none Family hx anesthesia problems: none Results Review: All pre-operative results and documents have been reviewed as part of the pre-operative evaluation. [facility] Past Medical History Medical History ADHD GERD (gastroesophageal reflux disease) Family History Family History Grandparent Breast cancer in female Lung cancer Mother Thyroid disease Sibling Breast cancer in female Social History Social History Smoking status: Never smoker Alcohol intake: current Alcohol use details: RARE Substance use: current Substance use type: marijuana Living arrangements: with family Spiritual care concerns: No Anes - Eval Final PreProcedure Day of Procedure 07/03/23 07:04 Patient weight: normal Heart: regular rate and rhythm Lungs: clear to auscultation Airway: Mallampati scale class II Neurological: alert and oriented Last oral intake: >/= 8 hours ASA classification: III Emergent: no Anesthetic plan: proceed Anesthesia type and monitoring: general ETT and standard monitoring Results Review: All pre-operative results and documents have been reviewed as part of the pre-operative evaluation. Informed Consent: The patient's anesthetic plan and its attendant risks and benefits were discussed with the patient/family/POA. Questions were solicited and answers provided to the satisfaction of the patient/family/POA.
--- NOTE | 2023-07-03 07:46 | W.PM.PROC2 ---
Procedure Note - Detailed Date of Procedure 07/03/23 Pre-op Diagnosis pelvic pain,endometrosis,dysmenorrhea,ana steril Post-op Diagnosis Other (Pelvic pain / sterilization/ right cyst) Procedure Performed laparoscopic bilateral tubal ligation with fallopian tube rings destruction of right ovarian cyst Surgeon Saul Lala MD Anesthesia General Indications this is a 37 female tubal ligation Findings large right ovarian cyst. Description of Procedure Patient is prepped draped in the sterile fashion placed in dorsal lithotomy position. Under excellent general trach anesthesia weighted speculum placed posterior fornix vagina. Anterior lip of cervix grasped with single-tooth tenaculum. Rawls's cannula inserted the single-tooth be used later for uterine manipulation. After emptying the bladder clear urine weighted speculum removed the gloves were changed. An infraumbilical incision made the Veress needle passed the a. At to 06/12/2014 the 5mm trocar advanced in the. Downside visualized seen. Gas reattached paced placed delivered. The 8mm trocar advanced supra area direct visualization assuring injury. Left and fallopian tubes were grasped with a good knuckle tube excellent. Right cyst was seen it was opened fashion drained clear fluid the instruments were turned on the gas removed from the abdomen incisions closed with 4 Monocryl glue. All sponge, needle, instrument counts were correct. Were no immediate complications Implants fallopian rings Estimated Blood Loss 5 Drains No Packing No Pathology None sent Complications No immediate complications Condition Stable Disposition PACU
[2023-07-03] MEDS: oxyCODONE HCL (*CRX) 5 MG TAB IR PO (09:02)
[2023-07-03] MEDS: fentaNYL CITRATE INJ (*CRX) 100 MCG/2 ML VIAL 25 MCG IV PUSH ×2 (09:29→09:48)
== END 2023-07-03 10:07 | disposition home or self-care (01) ==
PROVIDERS: PCP Family Medicine; Visit Provider Obstetrics & Gynecology
PROC: (CPT 58671; principal; 2023-07-03 07:30)
DX: Z30.2 Encounter for sterilization (principal); N83.201 Unspecified ovarian cyst, right side; N94.6 Dysmenorrhea, unspecified; R10.2 Pelvic and perineal pain; F90.9 Attention-deficit hyperactivity disorder, unspecified type
CPT/HCPCS: 58671; 58662; A4264; A9270; J0330; J1100; J1885; J2250; J2405; J2704; J3010; J7120

== ENCOUNTER 2023-09-23 07:57 | Outpatient (CLI) | payer OTHER, SELFPAY ==
[2023-09-23 08:27] LABS: Hematocrit 40.4 % (37.0-47.0); Hemoglobin 13.3 g/dL (12.0-15.0)
== END 2023-09-23 07:58 | disposition home or self-care (01) ==
LOC: ANHSURGERY 08:00
PROVIDERS: PCP Physician Assistant; Visit Provider Obstetrics & Gynecology
DX: R87.619 Unspecified abnormal cytological findings in specimens from cervix uteri (principal); Z01.818 Encounter for other preprocedural examination
CPT/HCPCS: 36415; 85014; 85018

== ENCOUNTER 2023-09-25 00:34 | Day surgery (SDC) | payer OTHER, SELFPAY ==
--- NOTE | 2023-09-21 09:22 | PC.NURSE ---
Addendum entered by Tarsha Moon RN 09/22/23 11:29: Hold Kirsty morning of surgery. Original Note: Report to the Outpatient Waiting Room, entrance under the green pavilion located off [facility], at time _0600_ on date _[id number]_. Planned Procedure Time: _0730_. Time changes happen often and if your time is changed the preop area will call you the afternoon before. - You and your visitor will be asked to self-screen and do not enter if you have any COVID symptoms. - A mask is optional within the hospital at this time. Patients may have clear liquids (water, carbonated beverages, clear teas, apple juice) until 3 hours prior to surgery with a maximum of 20 ounces. - No food from midnight until time of surgery Take the following medications with a SIP of water the morning of surgery: __Vyvance DO NOT STOP ANY OF YOUR OTHER PRESCRIPTION MEDICATIONS PRIOR TO SURGERY ?EXCEPT THE FOLLOWING Medications to discontinue per physician ____Vitamin D3 Date to take last ejck__[id number] Please no make-up, nail georgian, hairspray, perfume, deodorant, or body powder the day of surgery. No jewelry (including any body piercings) or valuables the day of surgery, leave them at home. Please take a shower or bath the night before, or the morning of, surgery with an antibacterial soap. Wear comfortable, loose fitting clothing. - Jewelry must be removed prior to entering the operating room. Rings and piercings that are not removed may be cut off. - The hospital will not accept responsibility for valuables. - Please leave all valuables, including medications, at home the day of surgery. If you are going home after surgery, a licensed stacker driver must drive you home. - NO public transportation without another adult if you receive anesthesia. - We recommend that an adult stay with you for 24 hours following discharge. - We also recommend that you do not drive, make important decision, drink alcoholic beverages, or take any drugs that were not prescribed by your health care provider for at least 24 hours after your discharge time. Follow any additional instructions given to you from your surgeon. If you or anyone in your household have experienced Covid symptoms in the past week, please notify your surgeon or the nurse liaison at the phone number below for possible testing. Telephone instructions given to __Radha__and asked if any additional questions and then verbalized understanding. Patient advised to call surgeon office or pre surgery nurse liaison [phone] if any additional questions.
--- NOTE | 2023-09-23 05:53 | PM.IMHP ---
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 Risks and benefits reviewed full [facility] Past Medical History Medical History ADHD GERD (gastroesophageal reflux disease) Family History Family History Grandparent Breast cancer in female Lung cancer Mother Thyroid disease Sibling Breast cancer in female Social History Social History Smoking status: Never smoker Alcohol intake: current Alcohol use details: RARE Substance use: current Substance use type: marijuana Living arrangements: with family Spiritual care concerns: No Meds Home Medications and Allergies Home Medications Medication Instructions Recorded Confirmed Type escitalopram oxalate 10 mg tablet 10 mg PO DAILY 06/29/23 09/21/23 History lisdexamfetamine 60 mg capsule 60 mg PO DAILY 06/29/23 09/21/23 History (Vyvanse) cholecalciferol (vitamin D3) 125 125 mcg PO DAILY 09/21/23 09/21/23 History mcg (5,000 unit) tablet (Vitamin D3) Allergies Allergy/AdvReac Type Severity Reaction Status Date / Time No Known Allergies Allergy Verified 09/21/23 09:15 Exam Const: General: cooperative, healthy appearing and comfortable Nutritional Appearance: average body habitus Orientation/consciousness: oriented to person, oriented to place and oriented to time HENMT: Head: normal to inspection Resp: Effort & Inspection: normal respiratory effort Cardio: Rate: regular rate Rhythm: regular rhythm Heart sounds: S1 normal heart sound present and S2 normal heart sound present GI: Inspection: normal to inspection Auscultation: normal bowel sounds : External Female Exam: normal external appearance Speculum Exam - Vagina: normal appearance of the vagina Speculum Exam - Cervix: normal appearance of the cervix Bimanual exam- vagina & uterus: enlarged Bimanual Exam- Adnexa, other: normal adnexae Assessment and Plan Assessment and plan (1) 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
[2023-09-25] MEDS: ACETAMINOPHEN 500 MG TABLET 1000 MG PO (06:15)
[2023-09-25] MEDS: LACTATED RINGERS 1,000 ML 30 ML IV CONT (06:15)
[2023-09-25 06:19] VITALS: BP 100/64; PULSE 72; RESP 14; TEMP 37.1; O2SAT 98
[2023-09-25 06:26] VITALS: BMI 19.8
--- NOTE | 2023-09-25 06:58 | WPDHPUPDATE1 ---
History and Physical Update Update Date/Time: 09/25/23 06:58 History and Physical has been reviewed, including an updated exam of the patient. There are NO changes in the patient's condition. Risks, benefits, and alternatives have been discussed and questions answered. Patient agrees to proceed with procedure.
--- NOTE | 2023-09-25 07:12 | WPDANESEPPF ---
Anes - Initial Pre Proc Eval Procedure: Operation Date: 09/25/23 07:30 Proposed Procedures p Loop Electrical Excision Procedure - Saul Lala MD Date/Time: 09/25/23 07:12 Surgeon: Saul Lala MD Pre Op Diagnosis: Abnormal Pap Patient Data Age: 37 Gender: F Height: 1.68 m Weight: 55.55 kg Last Vital Signs Temp 98.8 F 09/25/23 06:19 Pulse 72 09/25/23 06:19 Resp 14 09/25/23 06:19 BP 100/64 09/25/23 06:19 Pulse Ox 98 09/25/23 06:19 O2 Del Method Room Air 09/25/23 06:19 Allergies Allergy/AdvReac Type Severity Reaction Status Date / Time No Known Allergies Allergy Verified 09/25/23 06:06 Home Medications Medication Instructions Recorded Confirmed Type escitalopram oxalate 10 mg tablet 10 mg PO DAILY 06/29/23 09/21/23 History lisdexamfetamine 60 mg capsule 60 mg PO DAILY 06/29/23 09/21/23 History (Vyvanse) cholecalciferol (vitamin D3) 125 125 mcg PO DAILY 09/21/23 09/25/23 History mcg (5,000 unit) tablet (Vitamin D3) hydrocodone 5 mg-acetaminophen 325 1 tablet PO Q4H PRN pain #14 tabs 09/25/23 Rx mg tablet Patient hx anesthesia problems: none Family hx anesthesia problems: none Results Review: All pre-operative results and documents have been reviewed as part of the pre-operative evaluation. [facility] Past Medical History Medical History ADHD GERD (gastroesophageal reflux disease) Family History Family History Grandparent Breast cancer in female Lung cancer Mother Thyroid disease Sibling Breast cancer in female Social History Social History Smoking status: Never smoker Alcohol intake: current Alcohol use details: RARE Substance use: current Substance use type: marijuana Living arrangements: with family Spiritual care concerns: No Anes - Eval Final PreProcedure Day of Procedure 09/25/23 07:12 Patient weight: normal Heart: regular rate and rhythm Lungs: clear to auscultation Airway: Mallampati scale Neurological: alert and oriented Last oral intake: >/= 8 hours ASA classification: II Emergent: no Anesthetic plan: proceed Anesthesia type and monitoring: general GIVS and standard monitoring Results Review: All pre-operative results and documents have been reviewed as part of the pre-operative evaluation. Pt w ADHD meds. Informed Consent: The patient's anesthetic plan and its attendant risks and benefits were discussed with the patient/family/POA. Questions were solicited and answers provided to the satisfaction of the patient/family/POA.
[2023-09-25] MEDS: KETOROLAC 15 MG/ML VIAL (*BKC) IV PUSH (07:35)
[2023-09-25] MEDS: LIDOCAINE HCL 1% LOCAL INJ 20 ML VIAL 10 ML INFILTRATE (07:37)
--- NOTE | 2023-09-25 07:44 | W.PM.PROC2 ---
Procedure Note - Detailed Date of Procedure 09/25/23 Pre-op Diagnosis Abnormal Pap Post-op Diagnosis Same Procedure Performed Loop electrode excision of transformation zone Surgeon Saul Lala MD Anesthesia MAC and Local Indications 37-year-old female with high-grade dysplasia Findings normal-appearing cervix Description of Procedure patient is prepped draped sterile placed position. Excellent IV sedation MAC the posterior. several cc % xylocaine anesthesia was placed circumferentially around the cervix. Using a blend of 50 50 the largest LEEP instrument was used to remove the transformation zone in 1 piece. Base was cauterized blood loss was estimated at1cc. All sponge, needle, instrument counts were correct. There were no immediate complications Estimated Blood Loss 1 Drains No Packing No Pathology Yes Complications No immediate complications Condition Stable Disposition PACU
[2023-09-25 07:47] VITALS: BP 95/57; PULSE 62; RESP 20; O2SAT 97
[2023-09-25 08:15] VITALS: BP 93/66; PULSE 60; RESP 20
[2023-09-25] MEDS: oxyCODONE HCL (*CRX) 5 MG TAB IR PO (08:20)
[2023-09-25 08:45] VITALS: BP 104/70; PULSE 63; RESP 20
== END 2023-09-25 08:52 | disposition home or self-care (01) ==
PROVIDERS: PCP Physician Assistant; Visit Provider Obstetrics & Gynecology
PROC: 0UBC7ZZ Excision of Cervix, Via Natural or Artificial Opening (ICD-10-PCS; CPT 57522; principal; 2023-09-25 07:30)
DX: R87.613 High grade squamous intraepithelial lesion on cytologic smear of cervix (HGSIL) (principal); F90.9 Attention-deficit hyperactivity disorder, unspecified type; F12.90 Cannabis use, unspecified, uncomplicated
CPT/HCPCS: 57522; 88307; 88342; A9270; J1885; J2250; J2704; J3010; J7120